=== PATIENT | female | born 1940 | race American Indian/Alaskan Native ===

== ENCOUNTER 2021-04-14 13:11 | Emergency (ER) | payer MEDICARE ==
[2021-04-14 13:18] VITALS: BP 169/107
--- NOTE | 2021-04-14 13:26 | Event Note ---
ED Screening Note Date of service: 04/14/21 Time: 13:25 ED Screening Note: 80-year-old female presents ED status post fall complainingright shoulder pain brought in by EMS This initial assessment/diagnostic orders/clinical plan/treatment(s) is/are subject to change based on patients health status, clinical progression and re- assessment by fellow clinical providers in the ED. Further treatment and workup at subsequent clinical providers discretion. Patient/guardian urged not to elope from the ED as their condition may be serious if not clinically assessed and managed. Initial orders include: X-ray ordered.
--- NOTE | 2021-04-14 13:56 | XRay Report ---
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 No acute fracture o r dislocation. No soft tissue abnormality. Signer Name: Gaudencio Kumar MD Signed: 04/14/2021 1:51 PM Workstation Name: [id number]
[2021-04-14] MEDS ORDERED: HYDROcodone/ACETAMINOPHEN 5-325 MG TAB PO ONE (15:26)
--- NOTE | 2021-04-14 15:35 | Emergency Department Report ---
ED Fall HPI - General Chief Complaint: Extremity Injury, Upper Stated Complaint: RT SHOULDER PAIN Time Seen by Provider: 04/14/21 15:24 Source: patient, EMS Mode of arrival: Wheelchair Limitations: No Limitations - History of Present Illness Initial Comments: This is a 80-year-old female who presents to the ED complaining of right shoulder pain that began shortly after she fell prior to arrival to the ED. Patient states she was at home in her bathroom when she accidentally slipped and fell hitting her right shoulder. Patient denies hitting her head or having loss of consciousness or any neck injury. Patient states she called the ambulance and ambulance brought her into the ED. Patient complaining of right upper arm back shoulder pain. Patient denies any swelling to the shoulder. Patient states that pain is worsened with movement of the shoulder. MD Complaint: fall When Fall Occurred: 1 hour [employer] Fall Witnessed: no Place Fall Occurred: home Loss of Consciousness: none Prolonged Down Time?: no Symptoms Prior to Fall: none Location: other (shoulder right) Location - Extremities: Right: Shoulder Severity scale (0 -10): 8 Quality: aching Associated Symptoms: denies: headache, neck pain, shortness of breath, lightheaded - Related Data Previous Rx's Medication Instructions Recorded Last Taken Type HYDROcodone/APAP 5-325 [[place] 1 each PO Q6H #12 tablet 04/14/21 Unknown Rx 5-325 mg TAB] Allergies Allergy/AdvReac Type Severity Reaction Status Date / Time No Known Allergies Allergy Unverified 04/14/21 13:18 ED Review of Systems ROS: Stated complaint: RT SHOULDER PAIN Other details as noted in HPI Comment: All other systems reviewed and negative ED Past Medical Hx - Past Medical History Previous Medical History?: Yes Hx COPD: Yes (HOME 02) Additional medical history: BREAST CA - Surgical History Additional Surgical History: BILATERAL MASTECTOMY - Medications Home Medications: Home Medications Medication Instructions Recorded Confirmed Last Taken Type HYDROcodone/APAP 5-325 [[place] 1 each PO Q6H #12 tablet 04/14/21 Unknown Rx 5-325 mg TAB] ED Physical Exam - General Limitations: No Limitations, Other General appearance: alert, in no apparent distress - Head Head exam: Present: atraumatic, normocephalic, normal inspection, other (No injuries noted) - Eye Eye exam: Present: normal appearance, PERRL Pupils: Present: normal accommodation - ENT ENT exam: Present: mucous membranes moist - Neck Neck exam: Present: normal inspection, full ROM, other. Absent: tenderness - Respiratory Respiratory exam: Present: normal lung sounds bilaterally. Absent: respiratory distress, wheezes - Cardiovascular Cardiovascular Exam: Present: regular rate, normal rhythm. Absent: systolic murmur, diastolic murmur, rubs, gallop - GI/Abdominal GI/Abdominal exam: Present: soft, normal bowel sounds - Extremities Exam Extremities exam: Present: normal inspection, full ROM, tenderness (To palpation of the anterior and posterior shoulder joint. No swelling. No erythema, no deformity noted), normal capillary refill. Absent: joint swelling - Back Exam Back exam: Present: normal inspection, full ROM. Absent: tenderness, CVA tenderness (R), CVA tenderness (L), muscle spasm - Neurological Exam Neurological exam: Present: alert, oriented X3, CN II-XII intact, other (Patient ambulates with a walker at home) - Psychiatric Psychiatric exam: Present: normal affect, normal mood - Skin Skin exam: Present: warm, dry, intact, normal color. 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 No acute fracture or dislocation. No soft tissue abnormality. Signer Name: Gaudencio Johnson MD Signed: 04/14/2021 1:51 PM Workstation Name: [id number] Transcribed By: MARIA D Dictated By: SHIVA JOHNSON MD Electronically Authenticated By: SHIVA JOHNSON MD Signed Date/Time: 04/14/21 1351 - Medical Decision Making This 80-year-old female who had presented with shoulder pain status post a fall at home. X-ray shows no acute findings no fracture or dislocation. Patient is here with her daughter. Discussed x-ray findings to both patient and her daughter. Patient was in no acute or neurological deficit. Patient received pain medication in the ED prior to discharge. Patient reports pain reduced. Vital signs are normal she is in no acute distress. Discussed fall prevention at home. Critical care attestation.: If time is entered above; I have spent that time in minutes in the direct care of this critically ill patient, excluding procedure time. ED Disposition Clinical Impression: Shoulder pain, right, Fall from ground level Disposition: DC-01 TO HOME OR SELFCARE Is pt being admited?: No Does the pt Need Aspirin: No Condition: Stable Instructions: Shoulder Pain, Fall Prevention in the Home, Adult, [id number], Musculoskeletal Pain, How to Use Cold Therapy Additional Instructions: follow up with pcp take meds as prescribed if any worsening or new symptoms, please return to ED Prescriptions: HYDROcodone/APAP 5-325 [[place] 5-325 mg TAB] 1 each PO Q6H #12 tablet Referrals: [facility] [Provider Group] - 3-5 Days [facility] [Provider Group] - 3-5 Days Forms: Accompanied Note, Work/School Release Form(ED) Time of Disposition: 15:36
== END 2021-04-14 16:22 | disposition home or self-care (01) ==
LOC: ED 13:11
DX: M25.511 Pain in right shoulder (principal); J44.9 Chronic obstructive pulmonary disease, unspecified; Z98.890 Other specified postprocedural states; Z79.899 Other long term (current) drug therapy; W18.30XA Fall on same level, unspecified, initial encounter; Y93.89 Activity, other specified; Y92.89 Other specified places as the place of occurrence of the external cause; Y99.8 Other external cause status